=== PATIENT | female | born 2000 | race African-American/Black ===

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

== ENCOUNTER 2018-05-14 11:53 | Emergency (ER) | payer SELFPAY ==
[~2018-05-14] VITALS: Ht 160 cm; Wt 73.0 kg
[2018-05-14 12:42] VITALS: BP 108/64
[2018-05-14 14:03] LABS: CLARITY URINE CLEAR (CLEAR); KETONES URINE NEGATIVE (NEGATIVE); LEUKOCYTE ESTERASE URINE 1+ (NEGATIVE); NITRITE URINE NEGATIVE (NEGATIVE); OCCULT BLOOD URINE NEGATIVE (NEGATIVE); PROTEIN URINE NEGATIVE (NEGATIVE); SPECIFIC GRAVITY URINE 1.007 (1.005-1.030); UROBILINOGEN URINE 0.2 E.U./dL (0.2-1.0)
[2018-05-14 14:05] LABS: COLOR URINE PALE YELLOW (YELLOW)
== END 2018-05-14 21:11 | disposition left against medical advice (07) ==
LOC: ER 11:53
DX: R42 Dizziness and giddiness (principal); Z53.21 Procedure and treatment not carried out due to patient leaving prior to being seen by health care provider
CPT/HCPCS: 81025

== ENCOUNTER 2018-05-28 08:53 | Emergency (ER) | payer MEDICAID ==
[~2018-05-28] VITALS: Ht 160 cm; Wt 66.0 kg
[2018-05-28 11:54] LABS: CLARITY URINE TURBID (CLEAR); COLOR URINE YELLOW (YELLOW); KETONES URINE NEGATIVE (NEGATIVE); LEUKOCYTE ESTERASE URINE 2+ (NEGATIVE); NITRITE URINE NEGATIVE (NEGATIVE); OCCULT BLOOD URINE NEGATIVE (NEGATIVE); PH URINE 8.5 (4.5-8.0); PROTEIN URINE NEGATIVE (NEGATIVE); SPECIFIC GRAVITY URINE 1.019 (1.005-1.030)
[2018-05-28 12:47] LABS: BASOPHILS % 0.2 % (0.0-2.0); EOSINOPHILS % 2.9 % (0.0-5.0); HEMATOCRIT. 30.4 % (36.0-48.0); LYMPHOCYTES % 24.6 % (20.0-50.0); MEAN CORPUSCULAR HEMOGLOBIN 27.6 pg (28.0-32.0); MEAN CORPUSCULAR VOLUME 84.2 fL (81.0-99.0); MEAN PLATELET VOLUME 8.6 fl (7.4-10.4); MONOCYTES % 5.9 % (2.0-8.0); NEUTROPHILS % 66.4 % (40.0-76.0); PLATELET 228 x1000/uL (130-400); RED BLOOD CELL COUNT 3.61 mill/uL (4.2-5.4); RED CELL DISTRIBUTION WIDTH 16.7 % (11.6-14.6)
[2018-05-28 12:54] LABS: CHLORIDE 109 mEq/L (98-107)
[2018-05-28 13:17] LABS: B-HCG QUANTITATIVE 23424 mIU/mL (<3)
[2018-05-28 13:45] VITALS: BP 99/65
== END 2018-05-28 13:45 | disposition home or self-care (01) ==
LOC: ER 08:53
DX: O26.892 Other specified pregnancy related conditions, second trimester (principal); O23.32 Infections of other parts of urinary tract in pregnancy, second trimester; O99.012 Anemia complicating pregnancy, second trimester; Z3A.17 17 weeks gestation of pregnancy; Z87.19 Personal history of other diseases of the digestive system
CPT/HCPCS: 36415; 76805; 81025; 84702; 99284

== ENCOUNTER 2018-09-13 21:01 | Emergency (ER) | payer SELFPAY ==
[~2018-09-13] VITALS: Ht 160 cm; Wt 61.0 kg
[2018-09-13 23:52] LABS: HCG SCREEN NEGATIVE
[2018-09-14 00:08] VITALS: BP 107/62
== END 2018-09-14 00:10 | disposition home or self-care (01) ==
LOC: ER 21:01
DX: J06.9 Acute upper respiratory infection, unspecified (principal); R09.1 Pleurisy; F12.10 Cannabis abuse, uncomplicated; Z90.49 Acquired absence of other specified parts of digestive tract; Z87.442 Personal history of urinary calculi
CPT/HCPCS: 71045; 81025; 84703; 99284

== ENCOUNTER 2018-12-07 10:16 | Emergency (ER) | payer SELFPAY ==
[~2018-12-07] VITALS: Ht 160 cm; Wt 68.0 kg
[2018-12-07] MEDS ORDERED: ACETAMINOPHEN 325MG TABLET PO ONE (11:45)
[2018-12-07 11:49] VITALS: BP 96/55
[2018-12-07 11:54] LABS: BASOPHILS % 0.7 % (0.0-2.0); EOSINOPHILS % 2.9 % (0.0-5.0); HEMATOCRIT. 30.2 % (36.0-48.0); HEMOGLOBIN. 9.8 g/dL (12.0-16.0); MEAN CORPUSCULAR HEMOGLOBIN 26.5 pg (28.0-32.0); MEAN CORPUSCULAR VOLUME 81.8 fL (81.0-99.0); MEAN PLATELET VOLUME 8.4 fl (7.4-10.4); MONOCYTES % 8.5 % (2.0-8.0); NEUTROPHILS % 59.9 % (40.0-76.0); PLATELET 218 x1000/uL (130-400); RED BLOOD CELL COUNT 3.69 mill/uL (4.2-5.4); RED CELL DISTRIBUTION WIDTH 17.2 % (11.6-14.6)
[2018-12-07 11:58] LABS: CHLORIDE 107 mEq/L (98-107)
[2018-12-07 11:58] LABS: CLARITY URINE CLOUDY (CLEAR); COLOR URINE YELLOW (YELLOW); KETONES URINE NEGATIVE (NEGATIVE); LEUKOCYTE ESTERASE URINE NEGATIVE (NEGATIVE); NITRITE URINE NEGATIVE (NEGATIVE); OCCULT BLOOD URINE NEGATIVE (NEGATIVE); PH URINE 8.5 (4.5-8.0); PROTEIN URINE NEGATIVE (NEGATIVE); SPECIFIC GRAVITY URINE 1.016 (1.005-1.030); UROBILINOGEN URINE 0.2 E.U./dL (0.2-1.0)
[2018-12-07 13:04] LABS: B-HCG QUANTITATIVE 1376 mIU/mL (<3)
== END 2018-12-07 12:58 | disposition left against medical advice (07) ==
LOC: ER 10:16
DX: R07.89 Other chest pain (principal); R42 Dizziness and giddiness; F12.10 Cannabis abuse, uncomplicated; J45.909 Unspecified asthma, uncomplicated; Z90.49 Acquired absence of other specified parts of digestive tract; Z87.19 Personal history of other diseases of the digestive system
CPT/HCPCS: 36415; 76801; 81003; 84702; 93005; 99284

== ENCOUNTER 2019-04-21 14:40 | Observation (INO) | payer SELFPAY ==
[~2019-04-21] VITALS: Ht 160 cm; Wt 74.8 kg
[2019-04-21] MEDS ORDERED: LACTATED RINGERS 1,000 ML IV ONE (15:30)
[2019-04-21 16:38] LABS: CLARITY URINE CLOUDY (CLEAR); COLOR URINE YELLOW (YELLOW); KETONES URINE NEGATIVE (NEGATIVE); LEUKOCYTE ESTERASE URINE NEGATIVE (NEGATIVE); NITRITE URINE NEGATIVE (NEGATIVE); OCCULT BLOOD URINE NEGATIVE (NEGATIVE); PROTEIN URINE NEGATIVE (NEGATIVE); SPECIFIC GRAVITY URINE 1.023 (1.005-1.030)
[2019-04-21] MEDS ORDERED: LACTATED RINGERS 1,000 ML IV SCH (17:00)
== END 2019-04-21 17:58 | disposition home or self-care (01) ==
LOC: 8 EST LDRP 14:40
PROVIDERS: ADMIT Obstetrics & Gynecology; ATTEND Obstetrics & Gynecology
DX: O26.852 Spotting complicating pregnancy, second trimester (principal); Z3A.28 28 weeks gestation of pregnancy
CPT/HCPCS: 76805; 81003; 99281; G0378; 96360; 96361; J7120